=== PATIENT | female | born 1970 | race Caucasian/White ===

== ENCOUNTER → 2018-06-21 | Outpatient (CLI) | payer OTHER ==
[~2018-06-21] VITALS: Ht 175.3 cm; Wt 119.3 kg
[~2018-06-21] MED LIST: albuterol 2.5 MG/3 ML nebule NEB PRN
== END | disposition home or self-care (01) ==
LOC: RT 07:39
PROVIDERS: ATTEND Family Medicine
DX: R60.0 Localized edema (principal); J98.4 Other disorders of lung; R91.8 Other nonspecific abnormal finding of lung field; R06.09 Other forms of dyspnea; R53.83 Other fatigue; R09.02 Hypoxemia; Z88.0 Allergy status to penicillin; F17.210 Nicotine dependence, cigarettes, uncomplicated
CPT/HCPCS: 94060; 94727; 94729; 94760

== ENCOUNTER 2018-07-27 21:54 | Emergency (ER) | payer OTHER ==
[~2018-07-27] VITALS: Ht 175.3 cm; Wt 99.2 kg
[2018-07-27 22:31] LABS: BASOPHILS # (AUTO) 0.1 X10'3 (0-0.2); BASOPHILS % (AUTO) 0.4 % (0-1); EOSINOPHILS % (AUTO) 0.1 % (0-6); HEMATOCRIT 45.6 % (35.0-45.0); HEMOGLOBIN 15.1 g/dl (12.0-16.0); LYMPHOCYTES % (AUTO) 10.2 % (21-51); MEAN CORPUSCULAR HEMOGLOBIN 28.5 PG (27.0-31.0); MEAN CORPUSCULAR VOLUME 86.3 FL (78-98); MEAN PLATELET VOLUME 7.5 FL (7.4-10.4); MONOCYTES # (AUTO) 0.4 X10'3 (0-0.9); MONOCYTES % (AUTO) 1.9 % (2-12); NEUTROPHILS # (AUTO) 16.9 X10'3 (1.8-7.7); NEUTROPHILS % (AUTO) 87.4 % (42-75); PLATELET COUNT 519 X10'3 (140-440); RED BLOOD COUNT 5.29 X10'6 (4.20-5.60); RED CELL DISTRIBUTION WIDTH 14.4 % (11.5-14.5); WHITE BLOOD COUNT 19.4 X10'3 (4.5-11.0)
[2018-07-27 22:45] LABS: ALANINE AMINOTRANSFERASE 43 U/L (12-78); ALBUMIN 3.9 G/DL (3.4-5.0); ALKALINE PHOSPHATASE 110 IU/L (46-116); ANION GAP 12 (8-16); ASPARTATE AMINO TRANSFERASE 7 U/L (10-37); BILIRUBIN,TOTAL 0.4 MG/DL (0.1-1.0); BLOOD UREA NITROGEN 15 MG/DL (7-18); BUN/CREATININE RATIO 14.9 (6.6-38.0); CALCIUM 10.3 MG/DL (8.5-10.1); CHLORIDE 104 MMOL/L (99-107); CREATININE 1.01 MG/DL (0.40-0.90); GLUCOSE 172 MG/DL (70-104); POTASSIUM 3.3 MMOL/L (3.5-5.1); SODIUM 139 MMOL/L (135-145); TOTAL CARBON DIOXIDE 23.5 MMOL/L (24-32); TOTAL PROTEIN 7.9 G/DL (6.4-8.2); eGFR 58 ML/MIN
[2018-07-27 22:48] LABS: TOTAL CELLS COUNTED 100
[2018-07-27 22:49] LABS: PLATELET ESTIMATE INCREASED
[2018-07-27 22:57] LABS: PARTIAL THROMBOPLASTIN TIME 28 SECONDS (22-32)
[2018-07-27 23:34] VITALS: BP 145/88
[2018-07-27] MEDS ORDERED: iohexol 350MG/ML 100ml bottle IV ONE (23:58)
== END 2018-07-28 01:24 | disposition home or self-care (01) ==
LOC: ER 21:54
DX: R07.9 Chest pain, unspecified (principal); R00.0 Tachycardia, unspecified; Z88.0 Allergy status to penicillin
CPT/HCPCS: 36415; 71045; 71275; 80053; 84484; 85025; 85610; 85730; 93005; 99284; Q9967

== ENCOUNTER 2019-08-14 10:16 | Outpatient (CLI) | payer BC ==
[2019-08-14] VITALS (17 sets, daily range): BP systolic 117–142; BP diastolic 75–92
== END 2019-08-14 23:59 | disposition home or self-care (01) ==
LOC: CARD DIAG 10:16
PROVIDERS: ATTEND Family Medicine
DX: R55 Syncope and collapse (principal); R00.1 Bradycardia, unspecified
CPT/HCPCS: 93660